=== PATIENT | female | born 1970 | race Hispanic/Latino ===

== ENCOUNTER 2017-01-06 11:42 | Day surgery (SDC) | payer OTHER ==
[~2017-01-06] VITALS: Ht 160 cm; Wt 80.3 kg
[2017-01-06] VITALS (9 sets, daily range): BP systolic 97–119; BP diastolic 56–87; PULSE 53–81; RESP 15–22; O2SAT 96–100
--- NOTE | 2017-01-06 08:32 | PCM.HPANE ---
Patient Data Surgeon Admitting Provider: Attending Provider:Sol Francis MD Primary Care Physician:Kelsea Guerra MD Other Provider: Reason for Visit EMILY-3 Ht/WT & BMI Height (Feet): 5 Height (Inches): 3 Weight (Kilograms): 80.739 Body Mass Index 31.00 Allergies Coded Allergies: No Known Allergies (Verified , 01/04/17) Past Anesthesia History Anesthesia History: Denies:: Abnormal Airway, Anesthesia Reactions, Difficult Intubation, Malignant Hyperthermia Diabetes History Hx Diabetes?: No MRSA MRSA: No Medications Hypertension Medication: No Home Meds Incl Beta Sarah: No Reported Medications Tramadol 50 Mg Tablet5-100 Mg PO TID PRN For Pain Ref 0 01/04/17 Calcium Carbonate/Vitamin D3 (Calcium 600 + Vit D3 400 Tab)600 Mg-400 Tablet1 Each PO BID 01/04/17 Ibuprofen 200 Mg [id number] Mg PO QID PRN For Pain Ref 0 01/04/17 Acetaminophen 325 Mg [id number] Mg PO Q4H PRN PRN 01/04/17 Multivitamin (Multi Vitamin Daily)1 Each Tablet1 Each PO DAILY 30 Days Ref 0 01/04/17 Omeprazole Magnesium (Prilosec Otc)20 Mg Tablet.dr20 Mg PO DAILY #1 PKG Ref 0 01/04/17 History History of ENT Problems?: No HEENT History: Denies:: Abnormal Airway Cataracts Difficult Intubation Dysphagia Glaucoma Hearing Problem Sinus Problem TMJ Denture Type: None Teeth Condition: Within Normal Limits Hx of Heart Problems?: No Cardiovascular History: Denies:: Heart Murmur Hypertension Hx of Respiratory Problem?: No Respiratory History: Denies:: Asthma COPD Chest Surgery Cough Dyspnea Emphysema Hemoptysis Oxygen Administration Pneumonia Pulmonary Embolism Tuberculosis Use of C-PAP Machine Use of Inhalers / NEBS Hx Neurologic Problems?: No Neurological History: Denies:: Alzheimer's Disease CVA Dementia Dizziness Headaches Multiple Sclerosis Parkinson's Disease Peripheral Neuropathy Seizures TIA Hx of GI Problems?: Yes Gastrointestinal History: Denies:: Cirrhosis Diverticulitis Gall Bladder Disease Gastroesphageal Reflux Gastrointestinal Bleeding Heartburn Hepatitis Hiatal Hernia Liver Disease Rectal Bleeding Other GI Pertinent History: 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 Skin History: Denies:: History Skin Disorders? Pressure Ulcers Hx Musculoskeletal Problems?: Yes Musculoskeletal History: Positive for:: Musculoskeletal Trauma (C/OF KNEE PAIN -IS WEARING "PULL-ON" SUPPORT SLEEVE) Hx of Psycho/Social Problems?: No Hx Surgeries?: Yes (GASTRIC BYPASS/?GASTRIC SLEEVE,DX LAP/EXC LT OVARIAN CYST) Hx Any Other Health Problems?: Yes Other History: Positive for:: Hospitalization ([facility]) Denies:: Cancer Endocrine Disease Thyroid Disease Hx Diabetes: No Hx Substance Use: NoHave You Smoked inLast 12 mo: No Stop/Bang Treated for Sleep Apnea?: No Do You Have a CPAP Machine?: No S-Snoring: Do You Snore Loudly: No T-Tired: feel tired, fatigued: No O-Obsered: Observed not breath: No P-Blood Pressure: treated: No B- Body Mass Index > 35 kg/m2: No A- Age over 50: No N- Neck Large Circumference: No G- Gender Male: No DILSHAD Total Score: 0 Risk Assessment Category Category 1A: Patient has history of documented sleep apnea, and HAS NOT received any narcotic, sedative or anesthesia administration during this stay. Category 1B: Patient has history of documented sleep apnea, and HAS received any narcotic , sedative or anesthesia administration during this stay Category 2: Patient has SUSPECTED Obstructive Sleep Apnea, and HAS received any narcotic , sedative or anesthesia administration during this stay. Category 3: Patient has SUSPECTED Obstructive Sleep Apnea and HAS NOT received narcotic, sedative or anesthesia administration during this stay. Category 4: Outpatient in Procedural Areas with known sleep apnea or who screen positive for High Risk via the STOP/BANG questionnaire. Exam Exam General Appearance: Alert, Oriented X3, Cooperative, No Acute Distress HEENT/AIRWAY: MP 2 Lungs: Clear to Auscultation, Normal Air Movement Heart: Exam Unremarkable, Regular Rate/Rhythm, No Murmurs/Rubs/Gallops Plan Impression Patient chart reviewed, patient interviewed and anesthestic plan with risks, benefits, and alternatives discussed, and informed consent obtained. ASA Physical Status: ASA2 Mod Systemic Disease Anesthetic Plan: GA Bene/Risks/Altern/Consents: Yes HP Complete Prior to Induction: Yes Trae Carver MD Jan 06, 2017 08:32
[~2017-01-06 11:42] MED LIST: ACET325C PO; CALC-1034 PO; Dexamethasone 4 mg/mL Inj IVPUSH PRN; EPHEDrine Sulfate 50 mg/mL Inj IVPUSH PRN; HYDROmorphone 1 mg/mL Inj IVPUSH PRN; IBUP200C PO; Lactated Ringer's 1,000 ML IV SCH; Lactated Ringer's 500 ML IV PRN; MULT-1018 PO; MetoCLOpramide 5 mg/mL 2 mL Inj IVPUSH PRN; OMEP20TA24 PO; Ondansetron 2 mg/mL 2 mL Inj IVPUSH PRN; Phenylephrine 10,000 mCg/mL Inj IVPUSH PRN; TRAM50TA2 PO; fentaNYL-PF 50 mCg/mL 2 mL Inj IVPUSH PRN
[2017-01-06] MEDS ORDERED: Ondansetron 2 mg/mL 2 mL Inj ONE (11:43)
[2017-01-06] MEDS ORDERED: MetoCLOpramide 5 mg/mL 2 mL Inj ONE (11:43)
[2017-01-06] MEDS ORDERED: Dexamethasone 4 mg/mL Inj ONE (11:43)
[2017-01-06] MEDS: Lactated Ringer's 1,000 ML IV SCH ×2 (12:33→14:15)
--- NOTE | 2017-01-06 14:06 | PCM.HPANE ---
Patient Data Surgeon Admitting Provider: Attending Provider:Sol Francis MD Primary Care Physician:Kelsea Guerra MD Other Provider:[facility] Reason for Visit EMILY-3 Ht/WT & BMI Height (Feet): 5 Height (Inches): 3.00 Weight (Kilograms): 80.3 Body Mass Index 31.00 Allergies Coded Allergies: No Known Allergies (Verified , 01/04/17) Past Anesthesia History Anesthesia History: Denies:: Abnormal Airway, Anesthesia Reactions, Difficult Intubation, Malignant Hyperthermia Diabetes History Hx Diabetes?: No MRSA MRSA: No Medications Hypertension Medication: No Home Meds Incl Beta Sarah: No Reported Medications Tramadol 50 Mg Tablet5-100 Mg PO TID PRN For Pain Ref 0 01/04/17 Calcium Carbonate/Vitamin D3 (Calcium 600 + Vit D3 400 Tab)600 Mg-400 Tablet1 Each PO BID 01/04/17 Ibuprofen 200 Mg [id number] Mg PO QID PRN For Pain Ref 0 01/04/17 Acetaminophen 325 Mg [id number] Mg PO Q4H PRN PRN 01/04/17 Multivitamin (Multi Vitamin Daily)1 Each Tablet1 Each PO DAILY 30 Days Ref 0 01/04/17 Omeprazole Magnesium (Prilosec Otc)20 Mg Tablet.dr20 Mg PO DAILY #1 PKG Ref 0 01/04/17 History History of ENT Problems?: No HEENT History: Denies:: Abnormal Airway Cataracts Difficult Intubation Dysphagia Glaucoma Hearing Problem Sinus Problem TMJ Denture Type: None Teeth Condition: Within Normal Limits Hx of Heart Problems?: No Cardiovascular History: Denies:: Heart Murmur Hypertension Hx of Respiratory Problem?: No Respiratory History: Denies:: Asthma COPD Chest Surgery Cough Dyspnea Emphysema Hemoptysis Oxygen Administration Pneumonia Pulmonary Embolism Tuberculosis Use of C-PAP Machine Use of Inhalers / NEBS Hx Neurologic Problems?: No Neurological History: Denies:: Alzheimer's Disease CVA Dementia Dizziness Headaches Multiple Sclerosis Parkinson's Disease Peripheral Neuropathy Seizures TIA Hx of GI Problems?: Yes Other GI Pertinent History: 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 Skin History: Denies:: History Skin Disorders? Pressure Ulcers Hx Musculoskeletal Problems?: Yes Musculoskeletal History: Positive for:: Musculoskeletal Trauma (C/OF KNEE PAIN -IS WEARING "PULL-ON" SUPPORT SLEEVE) Hx of Psycho/Social Problems?: No Hx Surgeries?: Yes (GASTRIC BYPASS/?GASTRIC SLEEVE,DX LAP/EXC LT OVARIAN CYST) Hx Any Other Health Problems?: Yes Other History: Positive for:: Hospitalization ([facility]) Denies:: Cancer Endocrine Disease Thyroid Disease Hx Diabetes: No Hx Substance Use: NoHave You Smoked inLast 12 mo: No Stop/Bang Treated for Sleep Apnea?: No Do You Have a CPAP Machine?: No S-Snoring: Do You Snore Loudly: No T-Tired: feel tired, fatigued: No O-Obsered: Observed not breath: No P-Blood Pressure: treated: No B- Body Mass Index > 35 kg/m2: No A- Age over 50: No N- Neck Large Circumference: No G- Gender Male: No DILSHAD Total Score: 0 DILSHAD Risk Assessment: Low Risk, <3 Yes Risk Assessment Category Category 1A: Patient has history of documented sleep apnea, and HAS NOT received any narcotic, sedative or anesthesia administration during this stay. Category 1B: Patient has history of documented sleep apnea, and HAS received any narcotic , sedative or anesthesia administration during this stay Category 2: Patient has SUSPECTED Obstructive Sleep Apnea, and HAS received any narcotic , sedative or anesthesia administration during this stay. Category 3: Patient has SUSPECTED Obstructive Sleep Apnea and HAS NOT received narcotic, sedative or anesthesia administration during this stay. Category 4: Outpatient in Procedural Areas with known sleep apnea or who screen positive for High Risk via the STOP/BANG questionnaire. Exam Exam Vital Signs Vital Signs Date Time Temp Pulse Resp B/P Pulse Ox O2 Delivery O2 Flow Rate FiO2 01/06/17 12:34 36.7 53 16 109/68 100 Room Air General Appearance: Alert, Oriented X3, Cooperative, No Acute Distress HEENT/AIRWAY: MP 2 Lungs: Clear to Auscultation, Normal Air Movement Heart: Exam Unremarkable, Regular Rate/Rhythm, No Murmurs/Rubs/Gallops Meds/Labs/Diagnostics Admission Meds Current Medications Lactated Ringer's (Lr) 1,000 ml @ 120 mls/hr Q8H20M IV Last administered on t 12:33; Start 01/06/17 at 05:00; Stop 01/06/17 at 13:19; Status DC Plan Impression Patient chart reviewed, patient interviewed and anesthestic plan with risks, benefits, and alternatives discussed, and informed consent obtained. ASA Physical Status: ASA2 Mod Systemic Disease Anesthetic Plan: GA Bene/Risks/Altern/Consents: Yes HP Complete Prior to Induction: Yes Candido Nugent MD Jan 06, 2017 14:06
[2017-01-06] MEDS ORDERED: Lidocaine 1%/Epi 1:100,000 30 mL MDV INFILTRATE ONE (14:38)
[2017-01-06] MEDS ORDERED: Ondansetron 2 mg/mL 2 mL Inj IVPUSH PRN (15:15)
[2017-01-06] MEDS ORDERED: oxyCODONE-Acetamin 5-325 mg Tablet PO PRN (15:15)
--- NOTE | 2017-01-07 00:35 | OP ---
[address] [address] OPERATIVE REPORT PATIENT: BUNNY YOST : 1970 MR#: [id number] ADMIT: 01/06/2017 JOB ID: [id number] DATE OF SURGERY: 01/06/2017 PREOPERATIVE DIAGNOSIS(ES): A 46-year-old, 4, para 3-0-1-3, with EMILY III at ECC and EMILY II at 10 o'clock cervical biopsy. 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 POSTOPERATIVE DIAGNOSIS(ES): A 46-year-old, 4, para 3-0-1-3, with EMILY III at ECC and EMILY II at 10 o'clock cervical biopsy. 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 PROCEDURE: Loop electrosurgical excision procedure paracervical block. SURGEON: Sol Francis MD. ANESTHESIA: General endotracheal. ESTIMATED BLOOD LOSS: 50 cc. INTRAVENOUS FLUIDS: 300 cc of crystalloid. URINE OUTPUT: 50 cc of clear urine at the beginning of the procedure with in-and-out catheter. LAPS: None. DRAINS: None. COMPLICATIONS: None. SPECIMEN REMOVED: LEEP loop, endocervical curettage and specimen of endocervical canal all sent to Pathology. FINDINGS: 1. Examination under anesthesia revealed no adnexal masses appreciated bilaterally. A 12 week size anteverted uterus. 2. After applying Lugol's iodine, there was yellowish discoloration at 10 o'clock position of the cervix and squamocolumnar junction. PROCEDURE: Risks, benefits and alternatives of the procedure discussed with the patient. Informed consent signed. Patient moved to the OR with IV running. After general anesthesia was found to be adequate, the patient was placed in dorsal lithotomy position. Examined under anesthesia with the above findings. Then, patient was prepped and draped in normal sterile fashion. Weighted speculum inserted into patient's vagina. Anterior lip of the cervix grasped with a single-tooth tenaculum. Total of 5 cc of 1% lidocaine with epinephrine injected at 4 o'clock position of the cervix and another 5 cc of 1% lidocaine with epinephrine injected at 8 o'clock position of the cervix for paracervical block and hemostasis. Then, procedure started with LEEP loop size 2 x 0.8 cm. The first loop that was used was malfunctioning and was replaced with another loop. Due to the large size of the cervix, the cervical cone was cut in two pieces. The first piece representing the upper cervical lip and the second piece representing the lower cervical lip. This was followed by changing the LEEP loop to another loop size 1.5 x 1 cm, and the endocervical canal specimen was obtained in a top hat fashion. Then, ECC was collected with a sharp curette. This was followed by controlling bleeding from cervical stump using the . Then, Monsel was added for hemostasis confirmation. The patient tolerated the procedure well. All instruments removed from the patient's vagina. Good hemostasis assured. Instruments and sponge counts were correct x2. Two pieces of the cervical cone were tagged with a short tag at 12 o'clock and a long tag at 6 o'clock. The patient moved to recovery in stable condition. Dr. Francis was present and scrubbed for the entire procedure.
--- NOTE | 2017-01-10 14:46 | PATH ---
SURGICAL PATHOLOGY Attending Physician:Sol Francis MD CASE STATUS: Signed Out PATIENT NAME: BUNNY YOST PID: [id number] : 1970 DATE COLLECTED:01/06/2017 00:00 SPECIMEN: 1: Endocervix, Biopsy 2: Endocervix, Curettage 3: Cervical, Cone CLINICAL HISTORY: EMILY-3 1). ENDOCERVICAL CANAL 2). ENDOCERVICAL CURETTAGE 3). LEEP CONE, SHORT STITCH 12:00, LONG STITCH 6:00 FINAL DIAGNOSIS: 1.ENDOCERVICAL CANAL TISSUE: ENDOCERVICAL TISSUE WITH FOCAL AREAS OF SQUAMOUS METAPLASIA, BUT NEGATIVE FOR SIGNIFICANT ATYPIA. 2.ENDOCERVICAL CURETTINGS: MULTIPLE FRAGMENTS OF PROLIFERATIVE ENDOMETRIUM, NEGATIVE FOR ATYPIA. FRAGMENTS OF ENDOCERVICAL TISSUE, NEGATIVE FOR ATYPIA. 3.LEEP CONE BIOPSY, CERVIX: FOCAL AREA OF HIGH-GRADE SQUAMOUS INTRAEPITHELIAL LESION (EMILY 3), IN THE REGION OF THE TRANSFORMATION ZONE. INKED MARGINS NEGATIVE FOR ATYPIA. NEGATIVE FOR EVIDENCE OF INVASIVE MALIGNANCY. ICD10 D06.9 GROSS DESCRIPTION: The specimen is received in three formalin filled containers labeled with the patient's name. 1). The specimen is sublabeled "endocervical canal" and consists of a light harris portion of tissue which measures 2.0 x 1.5 x 1.0 CM, with a centrally located 0.6 CM in length opening. The specimen is inked blue. The specimen is radially sectioned and entirely submitted in cassettes 1A, 1B, 1C. 2). The specimen is sublabeled "endocervical curettage" and consists of a proximately a 1.0 cc aggregate of tissue, mucoid material and blood which is entirely submitted in cassette 2A. 3). The specimen is sublabeled "LEEP cone" and consists of multiple portions of tissue. And consists of multiple portions of tissue. The first is marked with a short suture designated 12:00. Specimen measurers 3.0 x 1.5 x 1.0 CM. Specimen is oriented with suture at 12:00 and will be inked as follows : From 9 to 12:00 green from, from 12 to 3:00 blue. The 9 to 12:00 margin is sectioned into 4 pieces and entirely submitted cassette 3A. The 12 to 3:00 margin is sectioned and 4 pieces entirely submitted in cassette 3B. The piece with the long suture will be inked as follows: from 3 to 6:00 yellow, from 6 to 9:00 blue. The 3 to 6:00 margin is sectioned into 4 pieces entirely submitted in cassette 3C. The 6 to 9:00 margin is sectioned into 4 pieces and entirely submitted in cassette 3D. Remaining sample in the container consists of 4 portions of tissue which aggregate to 3.5 x 1.5 x 1.0 CM. The specimen is inked blue. The specimen is sectioned into multiple pieces and entirely submitted in cassettes 3E through 3H. 01/07/2017 [facility] MICRO DESCRIPTION: See diagnosis. ICD-9 CODES: CPT CODES: 1: 98916 2: 98866 3: 31991 Electronically Signed Out Moreno Prasad MD [facility] [address], [place] [address] Technical component performed at [facility], [address] [place] [address] Ave[address], [place], [address]
== END 2017-01-06 23:59 | disposition home or self-care (01) ==
LOC: SAS 11:42
PROVIDERS: ATTEND Obstetrics & Gynecology
DX: D06.0 Carcinoma in situ of endocervix (principal); N87.9 Dysplasia of cervix uteri, unspecified
CPT/HCPCS: 57522; J1100; J1885; J2175; J2405; J2765; J7120